=== PATIENT | male | born 1960 | race Caucasian/White ===

== ENCOUNTER 2019-01-16 08:10 | Outpatient (CLI) | payer MEDICAID ==
[~2019-01-16 08:10] MED LIST: REGADENOSON 0.4 MG/5 ML SYRINGE ONE
== END 2019-01-16 23:59 | disposition home or self-care (01) ==
LOC: CFH 08:10
PROVIDERS: ATTEND Internal Medicine Cardiovascular Disease
DX: R94.31 Abnormal electrocardiogram [ECG] [EKG] (principal); I35.0 Nonrheumatic aortic (valve) stenosis
CPT/HCPCS: 78452; 93017; A9502; J2785